=== PATIENT | female | born 1955 | race Caucasian/White ===

== ENCOUNTER 2018-11-21 10:08 | Emergency (ER) | payer SELFPAY ==
[~2018-11-21] VITALS: Ht 167.6 cm; Wt 60.3 kg
[2018-11-21 10:11] VITALS: BP 118/64
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
--- NOTE | 2018-11-21 11:00 | NUR ---
Patient discharged to [employer] custody in stable condition. Written and verbal after care instructions given. Patient verbalizes understanding of instruction.
== END 2018-11-21 11:46 ==
LOC: ER 10:10
DX: F10.129 Alcohol abuse with intoxication, unspecified (principal); V49.49XA Driver injured in collision with other motor vehicles in traffic accident, initial encounter; Y93.89 Activity, other specified; Y92.413 State road as the place of occurrence of the external cause; Y99.8 Other external cause status